=== PATIENT | female | born 1965 | race Caucasian/White ===

== ENCOUNTER 2021-12-23 09:16 | Emergency (ER) | payer OTHER ==
[~2021-12-23] VITALS: Ht 170.2 cm; Wt 59.9 kg
[2021-12-23] MEDS ORDERED: KETOROLAC TROMETHAMINE 30 MG/ML VIAL IM STA (10:15)
[2021-12-23] MEDS ORDERED: HYDROCODONE/APAP 5MG-325MG TAB PO ONE (10:15)
[2021-12-23] MEDS ORDERED: HYDROCODON-ACE1 EAC9 PO (11:38)
== END 2021-12-23 11:45 | disposition home or self-care (01) ==
LOC: ER 09:25
DX: S42.252A Displaced fracture of greater tuberosity of left humerus, initial encounter for closed fracture (principal); S42.034A Nondisplaced fracture of lateral end of right clavicle, initial encounter for closed fracture; M25.512 Pain in left shoulder; M25.511 Pain in right shoulder; W10.8XXA Fall (on) (from) other stairs and steps, initial encounter; Y93.01 Activity, walking, marching and hiking; Y92.89 Other specified places as the place of occurrence of the external cause
CPT/HCPCS: 29240; 71046; 73030 ×2; 99283; J1885